=== PATIENT | female | born 1965 | race Asian ===

== ENCOUNTER 2023-06-06 15:47 | Outpatient (CLI) | payer OTHER, SELFPAY ==
--- NOTE | ~2023-06-06 | XR_ITS ---
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 TECHNIQUE: A single frontal view of the chest was obtained. COMPARISON: None. FINDINGS: There is no pneumonia, pleural effusion, or pneumothorax. The heart size is normal. IMPRESSION: 1. No acute cardiopulmonary disease. Reviewed, dictated and finalized at location E.
== END 2023-06-06 15:48 | disposition home or self-care (01) ==
LOC: ANHIMG 16:00
PROVIDERS: PCP Emergency Medicine; Visit Provider Emergency Medicine
DX: R76.11 Nonspecific reaction to tuberculin skin test without active tuberculosis (principal)
CPT/HCPCS: 71045

== ENCOUNTER 2024-06-16 01:01 | Day surgery (SDC) | payer OTHER, SELFPAY ==
[2024-05-25 15:44] VITALS: BMI 20.8
[2024-06-16 07:19] VITALS: BP 113/67; PULSE 64; RESP 17; TEMP 36.8; O2SAT 100; BMI 20.4
[2024-06-16] MEDS: LACTATED RINGERS 1,000 ML 30 ML IV CONT (07:32)
--- NOTE | 2024-06-16 07:50 | WPDANESEPPF ---
Anes - Initial Pre Proc Eval Procedure: Operation Date: 06/16/24 08:30 Proposed Procedures p Esophagogastroduodenoscopy&Screen Colon - Yobani Gross MD Date/Time: 06/16/24 07:50 Surgeon: Yobani Gross MD Pre Op Diagnosis: GERD, Neoplasm screening Patient Data Age: 59 Gender: F Height: 1.5 m Weight: 45.8 kg Last Vital Signs Temp 36.8 C 06/16/24 07:19 Pulse 64 06/16/24 07:19 Resp 17 06/16/24 07:19 BP 113/67 06/16/24 07:19 Pulse Ox 100 06/16/24 07:19 O2 Del Method Room Air 06/16/24 07:19 Allergies Allergy/AdvReac Type Severity Reaction Status Date / Time No Known Allergies Allergy Verified 06/16/24 07:18 Home Medications Medication Instructions Recorded Confirmed Type omeprazole 40 mg capsule,delayed 40 mg PO DAILY 05/25/24 06/16/24 History release Patient hx anesthesia problems: none Family hx anesthesia problems: none Results Review: All pre-operative results and documents have been reviewed as part of the pre-operative evaluation. [facility] Past Medical History Medical History (Updated 06/16/24 @ 07:51 by Paul Bird CRNA) GERD (gastroesophageal reflux disease) Social History Social History (System 01/31/22 @ 10:45 by Osmel Del Rosario) Smoking status: Never smoker Substance use type: does not use Living arrangements: with family Spiritual care concerns: No Anes - Eval Final PreProcedure Day of Procedure 06/16/24 07:50 Patient weight: normal Heart: regular rate and rhythm Lungs: clear to auscultation Airway: Mallampati scale class 1 Neurological: alert and oriented Last oral intake: >/= 8 hours ASA classification: II Emergent: no Anesthetic plan: proceed Anesthesia type and monitoring: general GIVS Results Review: All pre-operative results and documents have been reviewed as part of the pre-operative evaluation. Informed Consent: The patient's anesthetic plan and its attendant risks and benefits were discussed with the patient/family/POA. Questions were solicited and answers provided to the satisfaction of the patient/family/POA.
--- NOTE | 2024-06-16 08:22 | PM.HPGS ---
History of Present Illness History of Present Illness Consent: Risks, benefits, and alternatives have been discussed and questions answered. Patient agrees to proceed with procedure. Chief complaint: GERD, Neoplasm screening Narrative: Carmel Centeno is a 59 year old female here for egd and colonoscopy, constant clearing throat, gerd is better with ppi. Last colonoscopy 5 years ago without polyp but she did have previously Review of Systems Review of Systems: All systems reviewed & are unremarkable except as noted in HPI and below PMFSH Past Medical History Medical History (Updated 06/16/24 @ 08:23 by Yobani Gross MD) Colon polyp GERD (gastroesophageal reflux disease) Social History Social History (System 01/31/22 @ 10:45 by Osmel Del Rosario) Smoking status: Never smoker Substance use type: does not use Living arrangements: with family Spiritual care concerns: No Meds Home Medications and Allergies Home Medications Medication Instructions Recorded Confirmed Type omeprazole 40 mg capsule,delayed 40 mg PO DAILY 05/25/24 06/16/24 History release Allergies Allergy/AdvReac Type Severity Reaction Status Date / Time No Known Allergies Allergy Verified 06/16/24 07:18 Vital Signs Vital Signs - 24 hr 06/16/24 07:19 Temperature 98.3 F Pulse Rate 64 Respiratory Rate 17 Blood Pressure 113/67 Pulse Oximetry 100 Oxygen Delivery Room Air Exam Const: General: comfortable and no acute distress HENMT: Face/Nose/Sinus: Normal nares present Eyes: General: appearance normal, both eyes and all related structures Neck: Neck: no JVD Resp: Auscultation: clear to auscultation bilaterally Cardio: Rate: regular rate Rhythm: regular rhythm GI: Inspection: non-distended GI Palp: Yes Soft to palpation Skin: General skin exam: normal color Neuro: General: gait normal Speech: normal speech Extrem: General: normal to inspection Psych: Mental Status: mental status grossly normal Assessment and Plan Assessment and plan (1) GERD (gastroesophageal reflux disease): Code(s): K21.9 - Gastro-esophageal reflux disease without esophagitis Status: Acute Assessment and Plan: egd (2) Colon polyp: Code(s): K63.5 - Polyp of colon Status: Acute Assessment and Plan: colonoscopy
--- NOTE | 2024-06-16 08:31 | SUR.OPER ---
EGD [id number]. Colon start time 0835.
[2024-06-16 08:46] VITALS: BP 97/58; PULSE 70; RESP 20; O2SAT 99
[2024-06-16 08:56] VITALS: BP 101/69; PULSE 69; RESP 18; O2SAT 100
[2024-06-16 09:06] VITALS: BP 104/62; PULSE 65; RESP 22; O2SAT 100
== END 2024-06-16 09:13 | disposition home or self-care (01) ==
PROVIDERS: PCP Emergency Medicine; Referring Provider Emergency Medicine; Visit Provider Internal Medicine Gastroenterology
PROC: 0DJ08ZZ Inspection of Upper Intestinal Tract, Via Natural or Artificial Opening Endoscopic (ICD-10-PCS; CPT 43235; principal; 2024-06-16 08:30)
DX: Z12.11 Encounter for screening for malignant neoplasm of colon (principal); K57.30 Diverticulosis of large intestine without perforation or abscess without bleeding; Z86.010 Personal history of colon polyps; K29.50 Unspecified chronic gastritis without bleeding; K21.9 Gastro-esophageal reflux disease without esophagitis
CPT/HCPCS: 45378; 43239; 88305; 88342; J2704; J7120